=== PATIENT | male | born 1985 | race African-American/Black ===

== ENCOUNTER 2019-09-25 23:11 | Emergency (ER) | payer BC ==
[2019-09-26] MEDS ORDERED: IPRATROPIUM BROM 0.5MG/2.5ML ONE ×2 (00:23→00:26)
[2019-09-26] MEDS ORDERED: ALBUTEROL 2.5 MG/3 ML NEB SOL ONE ×2 (00:24→00:27)
[2019-09-26] MEDS ORDERED: predniSONE 20 MG TAB ONE ×2 (00:24→00:27)
--- NOTE | 2019-09-26 00:41 | ER ---
Nurse's Notes [facility] Name: Montez Simon Age: 34 yrs Sex: Male : 1985 Arrival Date: 09/25/2019 Time: 23:14 Bed 16 Private MD: Diagnosis: Unspecified asthma with (acute) exacerbation Presentation: 09/24 23:34 Chief complaint: Patient states: SOB since yesterday. Wheezing got worse today. Out of ll1 nebulizer. Coronavirus screen: Proceed with normal triage. Patient denies a cough. Patient reports shortness of breath or difficulty breathing. Patient denies measured and/or subjective temperature greater than 100.4F prior to today's visit. Patient denies travel on a cruise ship or to a country the [facility] [place]NOTE 2[place] currently lists as an affected area. Patient denies contact with known and/or suspected case of COVID-19. Ebola Screen: Patient denies travel to an Ebola-affected area in the 21 days before illness onset. Initial Sepsis Screen: Does the patient meet any 2 criteria? RR > 20 per min. Risk Assessment: Do you want to hurt yourself or someone else? Patient reports no desire to harm self or others. Onset of symptoms was September 24, 2019. 23:34 Method Of Arrival: Ambulatory ll1 23:34 Acuity: ROSAS 3 ll1 23:40 Initial Sepsis Screen: Does the patient have a suspected source of infection? No. vc Patient's initial sepsis screen is negative. Triage Assessment: 23:40 General: Appears in no apparent distress. uncomfortable, Behavior is appropriate for vc age, anxious. Historical: - Allergies: 23:35 No Known Allergies; ll1 - PMHx: 23:35 Asthma; ll1 - Immunization history:: Adult Immunizations up to date. - Social history:: Smoking status: Patient denies any tobacco usage or history of. Patient/guardian denies using alcohol, street drugs, tobacco products. Screenin/02 01:02 Abuse screen: Denies threats or abuse. Denies injuries from another. Nutritional lp1 screening: No deficits noted. Tuberculosis screening: No symptoms or risk factors identified. Fall Risk None identified. Assessment: 09/24 23:40 General: Appears in no apparent distress. uncomfortable, obese, Behavior is vc cooperative, anxious. Pain: Denies pain. 23:40 Neuro: Level of Consciousness is awake, alert, obeys commands, Oriented to person, vc place, time, situation, Appropriate for age. Cardiovascular: Capillary refill < 3 seconds Patient's skin is warm and dry. Respiratory: Airway is patent Respiratory effort is even, unlabored, Respiratory pattern is regular, symmetrical. Respiratory: Reports shortness of breath labored breathing Breath sounds with wheezes bilaterally. the patient has mild shortness of breath. GI: No signs and/or symptoms were reported involving the gastrointestinal system. GI: Reports. : No signs and/or symptoms were reported regarding the genitourinary system. 09/25 00:30 Reassessment: Patient appears in no apparent distress at this time. Patient and/or vc family updated on plan of care and expected duration. Pain level reassessed. Patient states symptoms have improved. 01:00 Reassessment: Patient is alert, oriented x 3, equal unlabored respirations, skin lp1 warm/dry/pink. Patient states feeling better. Patient states symptoms have improved. Vital Signs: 09/24 23:34 BP 188 / 98; Pulse 85; Resp 21; Temp 98.0; Pulse Ox 100% ; Pain 8/10; ll1 09/25 01:00 BP 145 / 91; Pulse 105; Resp 20; Pulse Ox 98% on R/A; lp1 ED Course: 09/24 23:14 Patient arrived in ED. cl3 23:35 Triage completed. ll1 23:36 Aniket Avalos PA is PHCP. cp 23:36 Ehsan Jewell MD is Attending Physician. cp 23:36 Arm band placed on Patient placed in an exam room, on a stretcher. ll1 23:40 Patient has correct armband on for positive identification. Bed in low position. Side vc rails up X2. Pulse ox on. NIBP on. 09/25 01:00 No provider procedures requiring assistance completed. Patient did not have IV access lp1 during this emergency room visit. 01:41 Daphney Jameson RN is Primary Nurse. vc Administered Medications: 00:20 Drug: Albuterol 2.5 mg Route: Inhalation; mg2 00:20 Drug: AtroVENT Aerosol 0.5 mg Route: Inhalation; mg2 00:20 Drug: predniSONE 60 mg Route: PO; mg2 Outcome: 00:41 Discharge ordered by . cp 01:00 Discharged to home ambulatory. lp1 01:00 Condition: good 01:00 Discharge instructions given to patient, Instructed on discharge instructions, follow up and referral plans. medication usage, Demonstrated understanding of instructions, follow-up care, medications, Prescriptions given X 3. 01:15 Patient left the ED. vc Signatures: Lily Doyle RN RN lp1 Aniket Avalos PA PA cp Gardose, Michele, RN RN mg2 Ricki Caceres cl3 Daphney Jameson RN RN vc Lewis, Lynsay, RN RN ll1 Corrections: (The following items were deleted from the chart) 02:29 01:41 Patient left the ED. vc vc
--- NOTE | 2019-09-26 00:41 | EDPHYS ---
Physician Documentation [facility] [place] Name: Montez Simon Age: 34 yrs Sex: Male : 1985 Arrival Date: 09/25/2019 Time: 23:14 Bed 16 Private MD: ED Physician Ehsan Jewell HPI: 09/25 00:05 This 34 yrs old Black Male presents to ER via Ambulatory with complaints of Asthma cp Exacerbation. 00:05 The patient presents to the emergency department with wheezing, Current therapy: cp albuterol inhaler, albuterol nebs, that began ran out of inhalers and NEB solution about 1 week ago, the patient was reported to have chest tightness, shortness of breath, wheezing. Onset: The symptoms/episode began/occurred gradually. Associated signs and symptoms: Pertinent negatives: chest pain, fever, cough, sore throat. Historical: - Allergies: 09/24 23:35 No Known Allergies; ll1 - PMHx: 23:35 Asthma; ll1 - Immunization history:: Adult Immunizations up to date. - Social history:: Smoking status: Patient denies any tobacco usage or history of. Patient/guardian denies using alcohol, street drugs, tobacco products. ROS: 09/25 00:10 Constitutional: Negative for body aches, chills, fever, poor PO intake. cp 00:10 Eyes: Negative for injury, pain, redness, and discharge. cp 00:10 ENT: Negative for ear pain, sore throat, difficulty swallowing, difficulty handling secretions. 00:10 Cardiovascular: Negative for chest pain, edema, palpitations. 00:10 Respiratory: Positive for shortness of breath, wheezing, Negative for cough. 00:10 Abdomen/GI: Negative for abdominal pain. 00:10 Back: Negative for pain at rest, pain with movement. 00:10 Skin: Negative for rash. 00:10 Neuro: Negative for altered mental status, dizziness, headache, syncope, weakness. 00:10 All other systems are negative. Exam: 00:10 Constitutional: The patient appears in no acute distress, alert, awake, cp non-diaphoretic, non-toxic, well developed, well nourished, morbid obesity 00:10 Head/Face: Normocephalic, atraumatic. cp 00:10 Eyes: Periorbital structures: appear normal, Conjunctiva: normal, no exudate, no injection, Lids and lashes: appear normal, bilaterally. 00:10 ENT: External ear(s): are unremarkable, Nose: is normal, Posterior pharynx: Airway: no evidence of obstruction, patent. 00:10 Chest/axilla: Inspection: normal, Palpation: is normal, no crepitus, no tenderness. 00:10 Cardiovascular: Rate: normal, Rhythm: regular, Edema: is not appreciated, JVD: is not appreciated. 00:10 Respiratory: the patient does not display signs of respiratory distress, Respirations: labored breathing, is not present, intercostal retractions, are absent, shallow respirations, are not present, Breath sounds: bronchial sounds, are not appreciated, decreased breath sounds, are not appreciated, stridor, is not appreciated, wheezing: is not appreciated. 00:10 Abdomen/GI: Exam negative for discomfort, distension, guarding, Inspection: obese 00:10 Back: pain, is absent, ROM is normal. Vital Signs: 09/24 23:34 BP 188 / 98; Pulse 85; Resp 21; Temp 98.0; Pulse Ox 100% ; Pain 8/10; ll1 09/25 01:00 BP 145 / 91; Pulse 105; Resp 20; Pulse Ox 98% on R/A; lp1 MDM: 09/24 23:36 Patient medically screened. cp 09/25 00:39 Differential diagnosis: asthma exacerbation, COVID-19, URI, pneumonia. Antibiotic cp administration: Not indicated, the patient's primary pathology is reactive airway disease. Data reviewed: vital signs, nurses notes. Counseling: I had a detailed discussion with the patient and/or guardian regarding: the historical points, exam findings, and any diagnostic results supporting the discharge/admit diagnosis, the presence of at least one elevated blood pressure reading (>120/80) during this emergency department visit, the need for outpatient follow up, a family practitioner, to return to the emergency department if symptoms worsen or persist or if there are any questions or concerns that arise at home. Response to treatment: improved, and as a result, I will discharge patient. Administered Medications: 00:20 Drug: Albuterol 2.5 mg Route: Inhalation; mg2 00:20 Drug: AtroVENT Aerosol 0.5 mg Route: Inhalation; mg2 00:20 Drug: predniSONE 60 mg Route: PO; mg2 Disposition: 05:30 Co-signature as Attending Physician, Ehsan Jewell MD. pkl Disposition: 09/26/19 00:41 Discharged to Home. Impression: Unspecified asthma with (acute) exacerbation. - Condition is Stable. - Discharge Instructions: Asthma, Adult, How to Take Your Blood Pressure, [id number]. - Prescriptions for Albuterol Sulfate 2.5 mg /3 mL (0.083 %) Inhalation Solution for Nebulization - inhale 1 unit by NEBULIZATION route every 8 hours As needed; 1 box. Prednisone 20 mg Oral Tablet - take 2 tablet by ORAL route once daily for 5 days; 10 tablet. Albuterol Sulfate 90 mcg/actuation - inhale 1-2 puff by INHALATION route every 4-6 hours; 1 Inhaler. - Work release form, Medication Reconciliation Form, Thank You Letter, Antibiotic Education, Prescription Opioid Use form. - Follow up: Private Physician; When: 2 - 3 days; Reason: Recheck today's complaints. - Problem is an acute exacerbation. - Symptoms have improved. Signatures: Ehsan Jewell MD MD pkl Aniket Avalos PA PA cp Gardose, Michele, RN RN mg2 Daphnye Jameson RN RN vc Eliot Caceres RN RN ll1 Corrections: (The following items were deleted from the chart) 01:41 00:41 09/26/2019 00:41 Discharged to Home. Impression: Unspecified asthma with (acute) vc exacerbation. Condition is Stable. Forms are Medication Reconciliation Form, Thank You Letter, Antibiotic Education, Prescription Opioid Use. Follow up: Private Physician; When: 2 - 3 days; Reason: Recheck today's complaints. Problem is an acute exacerbation. Symptoms have improved. cp
[2019-09-26 01:51] VITALS: TEMP 98
[2019-09-26 01:52] VITALS: BP 145/91; O2SAT 98
== END 2019-09-26 01:41 | disposition home or self-care (01) ==
LOC: ER 23:11
DX: J45.901 Unspecified asthma with (acute) exacerbation (principal)
CPT/HCPCS: 99284; J7512